=== PATIENT | male | born 1990 | race African-American/Black ===

== ENCOUNTER 2020-02-03 16:42 | Emergency (ER) | payer OTHER, MEDICAID, SELFPAY ==
[2020-02-03 16:55] VITALS: BP 122/58; PULSE 65; RESP 16; TEMP 36.5; O2SAT 99
--- NOTE | 2020-02-03 17:05 | DI.RAD.S_ITS ---
PROCEDURE: XR CHEST 2V INDICATIONS: cough, short of breath TECHNIQUE: 2 views of the chest were acquired. COMPARISON: None. FINDINGS: Surgical changes and devices: None. Lungs and pleura: Lungs are clear. No pleural effusions or pneumothorax. Mediastinum: Mediastinal contours are normal. Heart size is normal. Bones and chest wall: No suspicious bony abnormalities. Soft tissues appear unremarkable. IMPRESSION: Clear lungs. Dictated by: Bulmaro Downing M.D. on 02/03/2020 at 16:22 Approved by: Bulmaro Downing M.D. on 02/03/2020 at 16:23
[2020-02-03 17:28] VITALS: BP 107/60; PULSE 63; RESP 16; O2SAT 98
[2020-02-03 18:00] VITALS: BP 105/62; PULSE 70; RESP 16; O2SAT 100
--- NOTE | 2020-02-03 18:00 | ED.URI ---
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 He has complained of a dry cough, transient shortness of breath, muscle aches chills, vague abdominal symptoms and slight diarrhea since Saturday. He denies any nausea or vomiting, states that he is eating and drinking okay. He is taking ibuprofen, airborne, he hand some peppermint enzymes. He denies any ear pain or sore throat. He is concerned about continuing going to work while he thinks he might be sick Related Data Previous Rx's Medication Instructions Recorded pantoprazole [Protonix] 40 mg PO BID #30 tab 02/06/20 sucralfate 1 gram PO QACHS 28 Days #112 tab 02/06/20 Allergies Allergy/AdvReac Type Severity Reaction Status Date / Time No Known Drug Allergies Allergy Verified 02/06/20 15:57 Review of Systems <LOUISE Chery - Last Filed: 02/03/20 19:16> Review of Systems Narrative: GENERAL: See HPI HEENT: Denies sinus pain, ear pain, sore throat, difficulty swallowing, dizziness. RESPIRATORY: See HPI CARDIOVASCULAR: Denies chest pain, palpitations, orthopnea, edema, GASTROINTESTINAL: Denies nausea, vomiting, abdominal pain, diarrhea, constipation, melena. : Denies dysuria, frequency, incontinence, hematuria, urinary retention. MUSCULOSKELETAL: denies weakness, joint pain, or bony pain SKIN: Denies rash, skin lesions, or other NEUROLOGIC: Denies weakness, headache, numbness, change in speech, confusion, seizures, incoordination. PSYCHIATRIC: No concerning psychosocial issues. 12 point review of systems is negative except for those stated above Patient History <LILLIE Chery - Last Filed: 02/03/20 19:16> Social History Smoking Status: Current every day smoker Smoking Status: Current every day smoker Substance Use Type: does not use Exam <LILLIE Chery - Last Filed: 02/03/20 19:16> Narrative Exam Narrative: GENERAL: This is a well-nourished, well-developed patient, in no acute distress HEAD: Atraumatic. Normocephalic. No temporal or scalp tenderness. EYES: Pupils equal round and reactive. Extraocular motions intact. No scleral icterus. No injection or drainage. ENT: Nose without bleeding, purulent drainage or septal hematoma. Throat without erythema, tonsillar hypertrophy or exudate. Uvula midline. Airway patent. NECK: Trachea midline. No JVD or lymphadenopathy. Supple, nontender, no meningeal signs. CARDIOVASCULAR: Regular rate and rhythm RESPIRATORY: Clear to auscultation. Breath sounds equal bilaterally. No wheezes, rales, or rhonchi. No cough. No increased respiratory effort. No accessory muscle use. GASTROINTESTINAL: Abdomen soft, diffusely tender, nondistended. No hepato-splenomegaly, or palpable masses. No guarding. Soft nonrigid abdomen EXTREMITIES: No clubbing, cyanosis, or edema. No joint tenderness, effusion, or edema noted. BACK: Nontender without deformity or crepitance. No flank tenderness. NEURO: AOx3. SKIN: No rash or erythema on visible skin Initial Vital Signs Initial Vital Signs: Vital Signs Temperature 97.7 F 02/03/20 16:55 Pulse Rate 65 02/03/20 16:55 Respiratory Rate 16 02/03/20 16:55 Blood Pressure 122/58 L 02/03/20 16:55 Pulse Oximetry 99 02/03/20 16:55 <Beau Barajas DO - Last Filed: 02/09/20 18:05> Initial Vital Signs Initial Vital Signs: Vital Signs Temperature 97.7 F 02/03/20 16:55 Pulse Rate 65 02/03/20 16:55 Respiratory Rate 16 02/03/20 16:55 Blood Pressure 122/58 L 02/03/20 16:55 Pulse Oximetry 99 02/03/20 16:55 Scores <LILLIE Chery - Last Filed: 02/03/20 19:16> GCS Kaya coma scale eye opening: Spontaneous [place] coma scale verbal response: Orientated Kaya coma scale motor response: Obey commands [place] coma scale total score: 15 Course <LILLIE Chery - Last Filed: 02/03/20 19:16> Orders Ordered: ED Orders 02/03/20 17:05 XR chest 2V Stat Vital Signs Vital signs: Vital Signs - 8 hr 02/03/20 16:55 02/03/20 17:28 02/03/20 18:00 Temperature 97.7 F Pulse Rate 65 63 70 Respiratory Rate 16 16 16 Blood Pressure 122/58 L Blood Pressure [Left Arm] 107/60 105/62 Pulse Oximetry 99 98 100 <Beau Barajas DO - Last Filed: 02/09/20 18:05> Orders Ordered: ED Orders 02/03/20 17:05 XR chest 2V Stat Vital Signs Vital signs: Vital Signs - 8 hr 02/03/20 16:55 02/03/20 17:28 02/03/20 18:00 Temperature 97.7 F Pulse Rate 65 63 70 Respiratory Rate 16 16 16 Blood Pressure 122/58 L Blood Pressure [Left Arm] 107/60 105/62 Pulse Oximetry 99 98 100 MDM - URI/Sore Throat <LILLIE Chery - Last Filed: 02/03/20 19:16> Differential Diagnosis Differential diagnosis: Likely upper respiratory infection, viral infection and other (Pneumonia, coronavirus) Lab Data Labs: Lab Results 02/03/20 Range/Units 17:05 COVID-19 PCR Not detected (Not Detected) Imaging Data Chest x-ray: Radiologist's Impression: [address] [place] [id number] XRay Report Signed Patient: Hitesh Moreno JR RMR#: [id number] : 1990Acct:[id number] Age/Sex: 29 / MDate of Service: 02/03/20 Loc: ED Accession Number: [id number] Procedure: XR chest 2V Ordering Provider: Kitty Romero PROCEDURE: XR CHEST 2V INDICATIONS: cough, short of breath TECHNIQUE: 2 views of the chest were acquired. COMPARISON: None. FINDINGS: Surgical changes and devices: None. Lungs and pleura: Lungs are clear. No pleural effusions or pneumothorax. Mediastinum: Mediastinal contours are normal. Heart size is normal. Bones and chest wall: No suspicious bony abnormalities. Soft tissues appear unremarkable. IMPRESSION: Clear lungs. Dictated by: Bulmaro Downing M.D. on 02/03/2020 at 16:22 Approved by: Bulmaro Downing M.D. on 02/03/2020 at 16:23 MDM Narrative Medical decision making narrative: The patient is a 29-year-old male who presents with a chief complaint of ?I think. I have the coronavirus he has been experiencing similar symptoms such as muscle aches, chills, dry cough, transient shortness of breath and vague GI complaints. 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 Chest x-ray shows no pneumonia. Covid test is pending. I discussed at length self quarantine, acting as though he is sick, washing hands, covering coughs and sneezes etcetera until results come in. Encouraged following up with primary care provider given contact information [facility] health human resources operations director. Patient has no questions or concerns upon discharge and states understanding return precautions as well as follow-up care. I did offer to do lab work for his stomach the patient declined and stated he did not wait for. He is hemodynamically stable, in no acute respiratory distress speaking full sentences throughout his stay in the emergency department <Beau Barajas DO - Last Filed: 02/09/20 18:05> Lab Data Labs: Lab Results 02/03/20 Range/Units 17:05 COVID-19 PCR Not detected (Not Detected) Discharge Plan Departure Patient Disposition: Home Clinical Impression: Upper respiratory infection Qualifiers: URI type: unspecified viral URI Qualified Code(s): J06.9 - Acute upper respiratory infection, unspecified Discharge Date/Time: 02/03/20 18:25 Instructions: DI for Cough -- Adult, DI for Viral Upper Respiratory Infection -- Adult, Can COVID-19 be prevented? Activity Restrictions/Additional Instructions: Thank you for trusting us with your care today As discussed, your chest x-ray does not indicate pneumonia. However your symptoms correlate with Covid19. As I discussed, please act as though you are sick. This includes washing your hands, covering your coughs and sneezes, sanitizing often use surfaces every day. Please come back to the emergency department for any acute concerns such as inability keep down fluids, severe shortness of breath etcetera Please follow-up with primary care provider. I have given contact information at [facility] human resources operations director, who can help you identify one. Prescriptions: No Action pantoprazole [Protonix] 40 mg tablet,delayed release (DR/EC) 40 mg PO BID Qty: 30 RF: 0 sucralfate 1 gram tablet 1 gram PO QACHS 28 Days Qty: 112 RF: 0 Referrals: [facility] Resources [Outside] Stand Alone Forms: Work Release Note, Work/School Release <Beau Barajas, DO - Last Filed: 02/09/20 18:05> Cosign ED Attending Cosbenjaminature Attestation: Dr Barajas Co-Sign Statement: I was available for consultation during this patient's emergency department visit. This chart is signed by myself for administrative purposes only. I did not have direct contact with this patient during this visit. They were seen independently by the APC.
[2020-02-05 05:36] LABS: COVID19 Sendout Not Detected (Not Detected)
== END 2020-02-03 18:25 | disposition home or self-care (01) ==
PROVIDERS: Emergency Provider Nurse Practitioner Family
DX: J06.9 Acute upper respiratory infection, unspecified (principal); R06.02 Shortness of breath; R05 Cough
CPT/HCPCS: 71046; 87635; 99282; 99283

== ENCOUNTER 2020-02-06 15:36 | Emergency (ER) | payer OTHER, MEDICAID, SELFPAY ==
[2020-02-06 15:40] VITALS: BP 128/64; PULSE 78; RESP 16; TEMP 37.1; O2SAT 100; BMI 23.7
--- NOTE | 2020-02-06 16:08 | ED.ABDPAIN ---
HPI - Abdominal Pain General Chief Complaint: Abdominal Pain Stated Complaint: Stomach Is Bleeding Time Seen by Provider: 02/06/20 15:51 Source: patient Mode of arrival: Ambulatory Limitations: no limitations History of Present Illness HPI narrative: 29-year-old male comes emergency department with complaint of abdominal discomfort which he describes in the epigastric region. He states that he had sort of fevers, chills and muscle aches all over starting Saturday. He was seen here Saturday for concerns for Darragh it. He was tested which came back negative. Since then he has not had any additional fevers, chills but he has had some increasing abdominal discomfort. He states that he made himself throw up once yesterday. He states that there is a small amount of blood streaked in it at that time. He has also noted black tarry stools 7 or 8 times in the last 72 hours and occasionally some bright red blood streaked throughout. Patient states that he has had some generalized muscle aches occasionally. He does states that he was taking up to 10 Aleve daily for several days when he was feeling ill. He denies any other current medical issues. He denies any blood thinners. He denies any current medications. He comes in today as he noted on the directions for the Aleve that this can be a complication. Patient states he does use tobacco, denies any alcohol, denies illicit. Related Data Previous Rx's Medication Instructions Recorded pantoprazole [Protonix] 40 mg PO BID #30 tab 02/06/20 sucralfate 1 gram PO QACHS 28 Days #112 tab 02/06/20 Allergies Allergy/AdvReac Type Severity Reaction Status Date / Time No Known Drug Allergies Allergy Verified 02/06/20 15:57 Review of Systems Review of Systems ROS Unobtainable: All systems reviewed & are unremarkable except as noted in HPI and below Patient History Social History Smoking Status: Current every day smoker Smoking Status: Current every day smoker Substance Use Type: does not use Exam Narrative Exam Narrative: GENERAL: Alert and oriented x three, thin, well-appearing male in mild distress. HEENT: Head normocephalic, atraumatic, EOMI, pupils reactive, face symmetric, moist mucous membranes NECK: Supple, full range of motion CARDIOVASCULAR: Regular rate and rhythm without murmurs, rubs or gallops. RESPIRATORY: Breath sounds equal bilaterally, no wheezes rales or rhonchi. ABDOMEN: Soft, nontender. Nondistended. Normoactive bowel sounds all 4 quadrants. No guarding or rebound, rigidity, no mass. Positive stool occult, there is no bright red blood on digital rectal exam. No hemorrhoids noted externally or internally. : No CVA tenderness EXTREMITIES: Normal range of motion, no clubbing or edema. Neurovascularly intact NEUROLOGICAL: Cranial nerves II through XII grossly intact. Moving all extremities SKIN: Warm, dry, no petechiae, no rashes or lesions. Initial Vital Signs Initial Vital Signs: Vital Signs Temperature 98.8 F 02/06/20 15:40 Pulse Rate 78 02/06/20 15:40 Respiratory Rate 16 02/06/20 15:40 Blood Pressure 128/64 02/06/20 15:40 Pulse Oximetry 100 02/06/20 15:40 Course Orders Ordered: ED Orders 02/06/20 15:50 Complete Blood Count AUTO DIFF Stat Comprehensive Metabolic Panel Stat Lipase Stat Discontinued Medications Pantoprazole Sodium (Protonix) 80 mg IV NOW ONE Stop: 02/06/20 16:10 Last Admin: 02/06/20 16:18 Dose: 80 mg Documented by: REBECA Vital Signs Vital signs: Vital Signs - 8 hr 02/06/20 15:40 02/06/20 16:19 02/06/20 16:22 Temperature 98.8 F Pulse Rate 78 75 77 Respiratory Rate 16 18 18 Blood Pressure 128/64 Blood Pressure [Left Arm] 115/65 115/65 Pulse Oximetry 100 100 99 02/06/20 17:00 02/06/20 17:30 Temperature Pulse Rate 73 84 Respiratory Rate 18 16 Blood Pressure Blood Pressure [Left Arm] 112/62 112/67 Pulse Oximetry 100 100 MDM - Abdominal Pain Lab Data Result diagrams: 02/06/20 15:50 02/06/20 15:50 Labs: Lab Results 02/06/20 02/06/20 Range/Units 15:50 15:50 WBC 8.3 (4.5-11.0) X10^3/uL RBC 4.05 L (4.5-5.9) X10^6/uL Hgb 12.6 L (13.5-17.5) g/dL Hct 37.1 L (41-53) % MCV 91.7 (80-100) fL MCH 31.0 (26-34) PG MCHC 33.8 (30-36) % RDW 13.5 (11.6-14.8) % Plt Count 240 (150-400) X10^3/uL Neut % (Auto) 52.0 (50-75) % Lymph % (Auto) 35.8 (25-40) % Morton % (Auto) 9.6 (3-14) % Eos % (Auto) 1.9 L (2-4) % Baso % (Auto) 0.7 (0-2) % Neut # (Auto) 4300 (6626-5125) /uL Lymph # (Auto) 3000 (8707-7009) /uL Morton # (Auto) 800 (0-900) /uL Eos # (Auto) 200 (0-450) /uL Baso # (Auto) 100 (0-100) /uL Sodium 139 (137-145) mmol/L Potassium 4.0 (3.4-5.1) mmol/L Chloride 108 H (98-107) mmol/L Carbon Dioxide 25 (22-32) mmol/L BUN 25 H (9-20) mg/dL Creatinine 0.94 (0.66-1.25) mg/dL Estimated GFR > 60.0 (>60) mL/min BUN/Creatinine Ratio 26.6 H (6-22) Glucose 93 (70-100) mg/dL Calcium 8.8 (8.4-10.2) mg/dL Total Bilirubin 0.2 (0.2-1.3) mg/dL AST 26 (17-59) IU/L ALT 17 (<50) IU/L Alkaline Phosphatase 60 (38-126) U/L Total Protein 6.7 (6.3-8.2) g/dL Albumin 3.9 (3.5-5.0) g/dL Globulin 2.8 (1.7-4.1) g/dL Albumin/Globulin Ratio 1.4 (1.0-2.8) Lipase 86 (23-300) U/L MDM Narrative Medical decision making narrative: Patient comes in with dark/black stools 7 or 8 times in the last 3 days. He admits to using an excessive amount of Aleve. Labs were obtained and show Imaging was deferred as patient is likely having a either an ulcer or gastritis secondary to excessive NSAIDs. He did receive Protonix 80 mg IV given. Patient's labs show hemoglobin is 12, no priors for comparison. He does have a elevated chloride, BUN is 25 renal functions normal with LFTs in normal range. Stool occult was positive. Patient's vitals in the department have been normal with no tachycardia. Plan for patient to continue Protonix 40 mg twice daily, sucralfate and to avoid all NSAIDs and with strict return precautions. Spoke with General surgery about having patient follow-up for colonoscopy if he is not having resolution of symptoms. Spoke with Dr. Haynes who agrees with plan. Discharge Plan Departure Patient Disposition: Home Clinical Impression: GI bleed Qualifiers: GI bleed type/associated pathology: melena Qualified Code(s): K92.1 - Melena Instructions: Gastrointestinal Bleeding Activity Restrictions/Additional Instructions: Follow up with general surgery for recheck in the next week. Call for an appointment. You may need a EGD and/or colonoscopy for further evaluation I suspect that you have a bleed secondary to your excessive use of Aleve. Avoid all NSAIDs including Aleve, ibuprofen or ibuprofen type products. You may take Tylenol up to a 1000 mg every 8 hours as needed for pain. Do not take more than 3000mg in 24 hours. Take Protonix twice daily, also takes across face with meals and prior to sleep for the next 14 days. Return to the ER for fevers, increasing abdominal pain, continuing black or bloody stools lightheadedness, passing out, new chest pain or shortness of breath, persistent vomiting or other new or concerning symptoms Prescriptions: New pantoprazole [Protonix] 40 mg tablet,delayed release (DR/EC) 40 mg PO BID Qty: 30 RF: 0 sucralfate 1 gram tablet 1 gram PO QACHS 28 Days Qty: 112 RF: 0 Referrals: Zaid Haynes MD [Physician] -
[2020-02-06] MEDS: PANTOPRAZOLE 40 MG VIAL 80 MG IV (16:18)
[2020-02-06 16:19] VITALS: BP 115/65; PULSE 75; RESP 18; O2SAT 100
[2020-02-06 16:22] VITALS: BP 115/65; PULSE 77; RESP 18; O2SAT 99
[2020-02-06 16:31] LABS: Add Manual Diff / Slide Review NO; Basophils Absolute Auto 100 /uL (0-100); Basophils Percent Auto 0.7 % (0-2); Eosinophils Absolute Auto 200 /uL (0-450); Eosinophils Percent Auto 1.9 % (2-4); Hematocrit 37.1 % (41-53); Hemoglobin 12.6 g/dL (13.5-17.5); Lymphocytes Absolute Auto 3000 /uL (1100-4500); Lymphocytes Percent Auto 35.8 % (25-40); Mean Corpuscular HGB Conc 33.8 % (30-36); Mean Corpuscular Volume 91.7 fL (80-100); Monocytes Absolute Auto 800 /uL (0-900); Monocytes Percent Auto 9.6 % (3-14); Neutrophils Absolute Auto 4300 /uL (1500-7000); Platelet Count 240 X10^3/uL (150-400); Red Blood Cell Count 4.05 X10^6/uL (4.5-5.9); Red Cell Distribution Width 13.5 % (11.6-14.8); White Blood Cell Count 8.3 X10^3/uL (4.5-11.0)
[2020-02-06 16:36] LABS: Alanine Aminotransferase 17 IU/L (<50); Albumin 3.9 g/dL (3.5-5.0); Albumin Globulin Ratio 1.4 (1.0-2.8); Alkaline Phosphatase 60 U/L (38-126); Aspartate Aminotransferase 26 IU/L (17-59); BUN Creatinine Ratio 26.6 (6-22); Bilirubin Total 0.2 mg/dL (0.2-1.3); Blood Urea Nitrogen 25 mg/dL (9-20); Calcium 8.8 mg/dL (8.4-10.2); Carbon Dioxide 25 mmol/L (22-32); Chloride 108 mmol/L (98-107); Estimated Glomerular Filt Rate > 60.0 mL/min (>60); Globulin 2.8 g/dL (1.7-4.1); Glucose 93 mg/dL (70-100); HEMOLYSIS 21 (0-50); Lipase 86 U/L (23-300); Sodium 139 mmol/L (137-145); Total Protein 6.7 g/dL (6.3-8.2)
[2020-02-06 17:00] VITALS: BP 112/62; PULSE 73; RESP 18; O2SAT 100
[2020-02-06 17:30] VITALS: BP 112/67; PULSE 84; RESP 16; O2SAT 100
== END 2020-02-06 17:57 | disposition home or self-care (01) ==
PROVIDERS: Emergency Provider Emergency Medicine
DX: K92.1 Melena (principal); R10.13 Epigastric pain
CPT/HCPCS: 36415; 80053; 83690; 85025; 96374; 99284; C9113

== ENCOUNTER 2020-02-17 17:41 | Emergency (ER) | payer OTHER, MEDICAID, SELFPAY ==
[2020-02-17 17:49] VITALS: BP 129/64; PULSE 69; RESP 14; TEMP 36.9; O2SAT 98
[2020-02-17 18:10] LABS: Add Manual Diff / Slide Review NO; Basophils Absolute Auto 0 /uL (0-100); Basophils Percent Auto 0.3 % (0-2); Eosinophils Absolute Auto 100 /uL (0-450); Eosinophils Percent Auto 1.4 % (2-4); Hematocrit 33.5 % (41-53); Hemoglobin 11.1 g/dL (13.5-17.5); Lymphocytes Absolute Auto 1800 /uL (1100-4500); Lymphocytes Percent Auto 17.1 % (25-40); Mean Corpuscular HGB Conc 33.1 % (30-36); Mean Corpuscular Hemoglobin 30.4 PG (26-34); Mean Corpuscular Volume 91.6 fL (80-100); Monocytes Absolute Auto 800 /uL (0-900); Monocytes Percent Auto 7.6 % (3-14); Neutrophils Absolute Auto 7900 /uL (1500-7000); Neutrophils Percent Auto 73.6 % (50-75); Platelet Count 353 X10^3/uL (150-400); Red Blood Cell Count 3.66 X10^6/uL (4.5-5.9); Red Cell Distribution Width 13.9 % (11.6-14.8); White Blood Cell Count 10.7 X10^3/uL (4.5-11.0)
--- NOTE | 2020-02-17 18:15 | ED.RECABL ---
HPI - Recheck/Abnormal Lab/Rx General Chief Complaint: Recheck/Abnormal Lab/Rx Stated Complaint: stomach bleeding - needs check up Time Seen by Provider: 02/17/20 17:59 Source: patient Mode of arrival: Ambulatory Limitations: no limitations History of Present Illness HPI narrative: 29-year-old male smoker returns for checkup after a recent visit for GI bleed. He states he has no ongoing symptoms but because his paperwork says follow-up and he has no primary care provider he came here for evaluation. He denies any dizziness, weakness or lightheadedness. He has no chest pain or shortness of breath. He denies fever or chills. He has no ongoing bloody stools or hematemesis. He had developed some abdominal pain that was thought to be secondary to significant caffeine consumption and took a large amount of NSAIDs. Since then he has been taking his meds as directed. MD complaint: other Initial visit (ago): week(s) Returns today for: other Symptoms since prior visit: no new symptoms Context: planned re-check Associated symptoms: none Related Data Previous Rx's Medication Instructions Recorded pantoprazole [Protonix] 40 mg PO BID #30 tab 02/06/20 sucralfate 1 gram PO QACHS 28 Days #112 tab 02/06/20 Allergies Allergy/AdvReac Type Severity Reaction Status Date / Time No Known Drug Allergies Allergy Verified 02/06/20 15:57 Review of Systems Constitutional Constitutional: Denies chills, Denies fatigue, Denies fever(s), Denies frequent falls, Denies lethargy and Denies weakness Eyes Eyes: Denies change in vision, Denies eye discharge, Denies irritation and Denies loss of vision ENT Ears, Nose, Mouth, and Throat: Denies change in voice, Denies dizziness, Denies neck pain, Denies sore throat and Denies throat swelling Cardiovascular Cardiovascular: Denies chest pain, Denies irregular heart rhythm, Denies lightheadedness, Denies palpitations, Denies dyspnea, Denies dyspnea on exertion and Denies orthopnea Respiratory Respiratory: Denies cough, Denies dyspnea, Denies dyspnea on exertion and Denies wheezing Gastrointestinal Gastrointestinal: Denies abdominal pain, Denies change in bowel habits, Denies diarrhea, Denies nausea and Denies vomiting Genitourinary Genitourinary: Denies hematuria, Denies flank pain, Denies urinary incontinence and Denies urinary urgency Musculoskeletal Musculoskeletal: Denies back pain, Denies muscle weakness, Denies neck pain, Denies numbness and Denies tingling Integumentary/Breasts Skin/Breast: Denies pruritus, Denies erythema, Denies rash and Denies wounds Neurologic Neurologic: Denies behavioral changes, Denies confusion, Denies dizziness, Denies frequent falls, Denies loss of vision, Denies numbness, Denies tingling and Denies weakness Psychiatric Psychiatric: Denies anxiety, Denies behavioral changes, Denies confusion, Denies depression, Denies homicidal ideation and Denies suicidal ideation Endocrine Endocrine: Denies fatigue, Denies flushing and Denies palpitations Hematologic/Lymphatic Hematologic/Lymphatic: Denies easy bruising Allergic/Immunologic Allergic/Immunologic: Denies urticaria, Denies throat swelling and Denies wheezing Patient History Social History Smoking Status: Current every day smoker Smoking Status: Current every day smoker tobacco type: cigars Substance Use Type: does not use Exam Narrative Exam Narrative: GENERAL: [29] year old patient appears stated age. Well-nourished, well-developed patient, in mild distress. HEAD: Atraumatic. Normocephalic. EYES: Pupils equal round and reactive. Extraocular motions intact. No scleral icterus. No injection or drainage. ENT: Nose without bleeding, purulent drainage. Throat without erythema, tonsillar hypertrophy or exudate. Airway patent. NECK: Trachea midline. Non tender CARDIOVASCULAR: Regular rate and rhythm without murmurs, gallops, or rubs. RESPIRATORY: Clear to auscultation. Breath sounds equal bilaterally. No wheezes, rales, or rhonchi. GASTROINTESTINAL: Abdomen soft, non-tender, nondistended. EXTREMITIES: No edema or joint tenderness. BACK: Nontender without deformity or crepitance. No flank tenderness. NEURO: AOx3. SKIN: No rash or erythema of visible areas Initial Vital Signs Initial Vital Signs: Vital Signs Temperature 98.4 F 02/17/20 17:49 Pulse Rate 69 02/17/20 17:49 Respiratory Rate 14 02/17/20 17:49 Blood Pressure 129/64 02/17/20 17:49 Pulse Oximetry 98 02/17/20 17:49 Course Orders Ordered: ED Orders 02/17/20 18:01 CMP [Comprehensive Metabolic Panel] Stat Complete Blood Count AUTO DIFF Stat Prothrombin Time INR Stat Discontinued Medications Pantoprazole Sodium (Protonix) 40 mg IV NOW ONE Stop: 02/17/20 18:18 Last Admin: 02/17/20 18:43 Dose: Not Given Documented by: NOEMI Vital Signs Vital signs: Vital Signs - 8 hr 02/17/20 17:49 Temperature 98.4 F Pulse Rate 69 Respiratory Rate 14 Blood Pressure 129/64 Pulse Oximetry 98 MDM - Recheck/Abnormal Lab/Rx Lab Data Result diagrams: 02/17/20 18:01 02/17/20 18:01 Labs: Lab Results 02/17/20 02/17/20 02/17/20 Range/Units 18:01 18:01 18:01 WBC 10.7 (4.5-11.0) X10^3/uL RBC 3.66 L (4.5-5.9) X10^6/uL Hgb 11.1 L (13.5-17.5) g/dL Hct 33.5 L (41-53) % MCV 91.6 (80-100) fL MCH 30.4 (26-34) PG MCHC 33.1 (30-36) % RDW 13.9 (11.6-14.8) % Plt Count 353 (150-400) X10^3/uL Neut % (Auto) 73.6 (50-75) % Lymph % (Auto) 17.1 L (25-40) % Richardson % (Auto) 7.6 (3-14) % Eos % (Auto) 1.4 L (2-4) % Baso % (Auto) 0.3 (0-2) % Neut # (Auto) 7900 H (4516-4822) /uL Lymph # (Auto) 1800 (3510-2830) /uL Richardson # (Auto) 800 (0-900) /uL Eos # (Auto) 100 (0-450) /uL Baso # (Auto) 0 (0-100) /uL PT 11.5 (10.1-12.7) SECONDS INR 1.0 (0.9-1.3) Sodium 138 (137-145) mmol/L Potassium 3.9 (3.4-5.1) mmol/L Chloride 104 (98-107) mmol/L Carbon Dioxide 23 (22-32) mmol/L BUN 14 (9-20) mg/dL Creatinine 1.00 (0.66-1.25) mg/dL Estimated GFR > 60.0 (>60) mL/min BUN/Creatinine Ratio 14.0 (6-22) Glucose 117 H (70-100) mg/dL Calcium 8.8 (8.4-10.2) mg/dL Total Bilirubin 0.2 (0.2-1.3) mg/dL AST 31 (17-59) IU/L ALT 23 (<50) IU/L Alkaline Phosphatase 75 (38-126) U/L Total Protein 6.8 (6.3-8.2) g/dL Albumin 4.0 (3.5-5.0) g/dL Globulin 2.8 (1.7-4.1) g/dL Albumin/Globulin Ratio 1.4 (1.0-2.8) Discharge Plan Departure Patient Disposition: Home Clinical Impression: Feared complaint without diagnosis, Gastric pain Discharge Date/Time: 02/17/20 18:52 Instructions: Gastrointestinal Bleeding Activity Restrictions/Additional Instructions: *You have been diagnosed with [recheck for previous gastrointestinal bleeding due to excessive NSAID use] *What to do: *Take medications as directed *Follow up with your primary care provider in 2-3 days, call for an appointment. Let them know you were seen in the Emergency Department and that we ask that you be seen in follow up *Return to ER if you should have any new, worsening or concerning symptoms Prescriptions: No Action pantoprazole [Protonix] 40 mg tablet,delayed release (DR/EC) 40 mg PO BID Qty: 30 RF: 0 sucralfate 1 gram tablet 1 gram PO QACHS 28 Days Qty: 112 RF: 0 Referrals: [facility] [Outside]
[2020-02-17 18:19] LABS: Prothrombin Time 11.5 SECONDS (10.1-12.7)
[2020-02-17 18:27] LABS: Alanine Aminotransferase 23 IU/L (<50); Albumin Globulin Ratio 1.4 (1.0-2.8); Alkaline Phosphatase 75 U/L (38-126); Aspartate Aminotransferase 31 IU/L (17-59); Bilirubin Total 0.2 mg/dL (0.2-1.3); Blood Urea Nitrogen 14 mg/dL (9-20); Calcium 8.8 mg/dL (8.4-10.2); Carbon Dioxide 23 mmol/L (22-32); Chloride 104 mmol/L (98-107); Estimated Glomerular Filt Rate > 60.0 mL/min (>60); Globulin 2.8 g/dL (1.7-4.1); Glucose 117 mg/dL (70-100); HEMOLYSIS < 15 (0-50); Potassium 3.9 mmol/L (3.4-5.1); Sodium 138 mmol/L (137-145); Total Protein 6.8 g/dL (6.3-8.2)
== END 2020-02-17 18:52 | disposition home or self-care (01) ==
PROVIDERS: Emergency Medicine; Emergency Provider Emergency Medicine
DX: R10.9 Unspecified abdominal pain (principal)
CPT/HCPCS: 36415; 80053; 85025; 85610; 99283

== ENCOUNTER 2020-03-09 16:56 | Emergency (ER) | payer OTHER, MEDICAID, SELFPAY ==
[2020-03-09 17:00] VITALS: BP 136/80; PULSE 90; RESP 14; TEMP 36.7; O2SAT 98; BMI 23.7
--- NOTE | 2020-03-09 17:12 | PC.NURSE ---
pt here c/o back of head pain after using razor, now with tenderness to palpate ,swelling, sxs for 4 days. also c/o anterior abdominal pain, +bm today, denies nausea or vomiting. pt with flat affect, responds slow but appropriate skin back of head irritated, denies neck pain with full range of motion
--- NOTE | 2020-03-09 17:41 | ED_ITS ---
HPI - Headache <Zeinab Holcomb PA-C - Last Filed: 03/09/20 22:15> General Chief Complaint: Headache Stated Complaint: Pain in head, breathing/ stomach issues Time Seen by Provider: 03/09/20 17:24 Mode of arrival: Ambulatory Limitations: no limitations History of Present Illness HPI Narrative: This is 29-year-old who presents to the emergency department with complaints of pain in the back of his head in the area where he shaved a few days ago, as well as some continued intermittent abdominal pain that is similar to but less severe than the abdominal pain he had a few weeks ago when he was diagnosed with a probable peptic ulcer disease/GI bleed. He states that he just has not been feeling well recently. He states that he has been continuing to smoke although he has tried to change some things in his diet. He has continued to take the sucralfate however he ran out of the other medicine (Pantoprozole) a few weeks ago and his pain began to return intermittently. He says his pain is not very severe, is not really a pain so much as a generalized discomfort that he notes in the upper mid and upper left part of his abdomen, he thinks that it is worse after he smokes or drinks coffee although he does not really feel it is worse after eating food. He has been drinking a lot of water because he feels like this has been relieving his pain somewhat. He says that the back of his head felt swollen and was worse a few days ago than it is today, he shaved that area about 5 days ago and since then it seems like it was irritated and itchy and swelling, he has been icing this area but has not done anything else for it. He [place] and has not really been able to follow-up with a PCP regarding his abdominal complaints for which he was seen in the emergency department 2 weeks ago. He endorses feeling generally unwell recently and states that he was working out frequently until a couple of months ago, but more recently he has felt muscle pain a fair amount and so he has been icing his muscles frequently he thinks that they still hurt sometimes because he used to work out a lot. He also notes that he has some swollen lymph nodes behind his left ear, which have been there for a little while that he would ?like to get removed?. He says he smokes a lot of cigarettes and I also vape a lot He denies nausea, vomiting, diarrhea, constipation, blood in his stool, hematemesis, acute abdominal pain, fever, shortness of breath, headache, dysuria or any other symptoms, alcohol use, drug use, or prescription/OTC medication use with exceptions above. MD Complaint: other (swelling after shaving back of head) Onset (ago): day(s) (5) Onset description: gradual Location: occipital (in the skin) Severity: mild Severity scale (1-10): 2 Quality: intermittent and other (itchy and swollen feeling) Relieving factors: other (ice/cold) Exacerbating factors: none Context: other (occurred after shaving) Associated symptoms: none Treatments prior to arrival: other (ice) Related Data Previous Rx's Medication Instructions Recorded pantoprazole [Protonix] 40 mg PO BID #30 tab 02/06/20 Allergies Allergy/AdvReac Type Severity Reaction Status Date / Time No Known Drug Allergies Allergy Verified 03/09/20 17:11 Review of Systems <Zeinab Holcomb PA-C - Last Filed: 03/09/20 22:15> Review of Systems Narrative: GENERAL: Endorses generally just feeling unwell recently, Denies chills, fatigue, fever, sweats. HEENT: Denies sinus pain, ear pain, sore throat, difficulty swallowing, dizziness. RESPIRATORY: Denies dyspnea, cough, wheezing, hemoptysis, sputum. CARDIOVASCULAR: Denies chest pain, palpitations, orthopnea, edema, GASTROINTESTINAL: Denies vomiting, endorses intermittent upper middle and left sided abdominal pain, denies diarrhea, constipation, melena, blood in stool, hematemesis. : Denies dysuria, frequency, incontinence, hematuria, urinary retention. MUSCULOSKELETAL: denies weakness, joint pain, or bony pain SKIN: Denies rash, skin lesions, or other NEUROLOGIC: Denies weakness, headache, numbness, change in speech, confusion, seizures, incoordination. PSYCHIATRIC: No concerning psychosocial issues. 12 point review of systems is negative except for those stated above Patient History <Zeinab Holcomb PA-C - Last Filed: 03/09/20 22:15> Social History Smoking Status: Current every day smoker Smoking Status: Current every day smoker tobacco type: cigars Substance Use Type: does not use Exam <Zeinab Holcomb PA-C - Last Filed: 03/09/20 22:15> Narrative Exam Narrative: GENERAL: 29 year old patient appears stated age. Multiple tattoos, pleasant, Well-nourished, well-developed patient, in mild distress. HEAD: Atraumatic. Normocephalic. There is a 4cm x 9cm area of mild tenderness and swelling with follicular irritation on the posterior over the occiput. It is without erythema, heat, or significant swelling. EYES: Pupils equal round and reactive. Extraocular motions intact. No scleral icterus. No injection or drainage. ENT: Nose without bleeding, purulent drainage. Throat without erythema, tonsillar hypertrophy or exudate. Airway patent. NECK: Trachea midline. Non tender. CARDIOVASCULAR: Regular rate and rhythm without murmurs, gallops, or rubs. RESPIRATORY: Clear to auscultation. Breath sounds equal bilaterally. No wheezes, rales, or rhonchi. GASTROINTESTINAL: Abdomen nondistended, there is tenderness over the epigastric and left upper quadrant area with moderate to deep palpation that reproduces his dull abdominal pain all other quadrants are without pain, he has no McBurney's point tenderness, negative Rovsing sign, negative courvasier's sign, liver and gallbladder are nontender by palpation. EXTREMITIES: No edema or joint tenderness. BACK: Nontender without deformity or crepitance. No flank tenderness. NEURO: AOx3. SKIN: No rash or erythema of visible areas Initial Vital Signs Initial Vital Signs: Vital Signs Temperature 98.1 F 03/09/20 17:00 Pulse Rate 90 03/09/20 17:00 Respiratory Rate 14 03/09/20 17:00 Blood Pressure 136/80 03/09/20 17:00 Pulse Oximetry 98 03/09/20 17:00 <Pauly Epperson MD - Last Filed: 03/09/20 23:04> Initial Vital Signs Initial Vital Signs: Vital Signs Temperature 98.1 F 03/09/20 17:00 Pulse Rate 90 03/09/20 17:00 Respiratory Rate 14 03/09/20 17:00 Blood Pressure 136/80 03/09/20 17:00 Pulse Oximetry 98 03/09/20 17:00 Course <Zeinab Holcomb PA-C - Last Filed: 03/09/20 22:15> Course Course Narrative: The patient presented with pain at the back of his head 2nd to irritation after shaving 5 days ago as well as intermittent and recurrent abdominal pain left upper quadrant and just feeling unwell. Patient was updated regarding his labs and concern for acute pancreatitis, advised we would be doing some additional labs as well as getting a CT scan imaging to look at his pancreas and abdomen the patient was amenable to this. Also advised the patient that it may be possible he should be admitted to the hospital for further monitoring given the potential dangers inherent in acute pancreatitis. Later in the patient's stay he stated that he felt like he wanted to smoke and was offered a nicotine patch, which was ordered. Shortly after, the patient advised the charge nurse that he was getting antsy and wanted to go outside and smoke. I spoke with the patient and discussed the fact that we are still waiting on the final results from his CT scan, that his symptoms/labs are concerning for a cute pancreatitis, he was provided with some risk factors regarding potential sequela of acute pancreatitis including , or organ failure and he was discouraged from leaving Against Medical Advice. He stated that ?you guys just don't understand where I'm at, I need to go outside and smoke ? He then pulled his own IV out. He stated that he would be willing to ?come back in after smoking? it was explained to him that that is not typically how this works, it is an emergency department and if he comes back he is going to have to check in again and go through the whole process, get a new IV Started etc. The patient then signed AMA and left. Pt's case was discussed with the attending. 20:48 Orders Ordered: ED Orders 03/09/20 18:13 Amylase Stat Complete Blood Count AUTO DIFF Stat Comprehensive Metabolic Panel Stat Lipase Stat 03/09/20 18:44 Lactate (Lactic Acid) Stat 03/09/20 19:33 CT abdomen pelvis w con Stat 03/09/20 19:40 Urinalysis and Microscopic Stat Discontinued Medications Acetaminophen (Tylenol) 650 mg PO NOW ONE Stop: 03/09/20 18:03 Last Admin: 03/09/20 18:16 Dose: 650 mg Documented by: MEISENB Sodium Chloride (Normal Saline 0.9%) 1,000 mls @ 150 mls/hr IV CONT OSMAR Last Infusion: 03/09/20 20:49 Dose: 0 mls/hr Documented by: Admin: 03/09/20 18:56 Dose: 150 mls/hr Documented by: MEISENB Lidocaine/Sodium Bicarbonate (Buffered Lidocaine 10 Ml Syr) 10 ml INJ NOW ONE Stop: 03/09/20 18:32 Last Admin: 03/09/20 19:10 Dose: Not Given Documented by: MEISENB Nicotine (Nicoderm) 21 mg TOP NOW ONE Stop: 03/09/20 19:58 Last Admin: 03/09/20 20:14 Dose: 21 mg Documented by: MMCFARL Vital Signs Vital signs: Vital Signs - 8 hr 03/09/20 17:00 03/09/20 19:00 Temperature 98.1 F Pulse Rate 90 73 Respiratory Rate 14 18 Blood Pressure 136/80 Blood Pressure [Left Arm] 125/71 Pulse Oximetry 98 99 <Pauly Epperson MD - Last Filed: 03/09/20 23:04> Orders Ordered: ED Orders 03/09/20 18:13 Amylase Stat Complete Blood Count AUTO DIFF Stat Comprehensive Metabolic Panel Stat Lipase Stat 03/09/20 18:44 Lactate (Lactic Acid) Stat 03/09/20 19:33 CT abdomen pelvis w con Stat 03/09/20 19:40 Urinalysis and Microscopic Stat Discontinued Medications Acetaminophen (Tylenol) 650 mg PO NOW ONE Stop: 03/09/20 18:03 Last Admin: 03/09/20 18:16 Dose: 650 mg Documented by: MEISENB Sodium Chloride (Normal Saline 0.9%) 1,000 mls @ 150 mls/hr IV CONT OSMAR Last Infusion: 03/09/20 20:49 Dose: 0 mls/hr Documented by: Admin: 03/09/20 18:56 Dose: 150 mls/hr Documented by: MEISENB Lidocaine/Sodium Bicarbonate (Buffered Lidocaine 10 Ml Syr) 10 ml INJ NOW ONE Stop: 03/09/20 18:32 Last Admin: 03/09/20 19:10 Dose: Not Given Documented by: MEISENB Nicotine (Nicoderm) 21 mg TOP NOW ONE Stop: 03/09/20 19:58 Last Admin: 03/09/20 20:14 Dose: 21 mg Documented by: MMCFARL Vital Signs Vital signs: Vital Signs - 8 hr 03/09/20 17:00 03/09/20 19:00 Temperature 98.1 F Pulse Rate 90 73 Respiratory Rate 14 18 Blood Pressure 136/80 Blood Pressure [Left Arm] 125/71 Pulse Oximetry 98 99 MDM - Headache <Zeinab Holcomb PA-C - Last Filed: 03/09/20 22:15> Differential Diagnosis Differential diagnosis: Likely other (acute pancreatitis, folliculitis of scalp) Medical Records Attestation: I reviewed the patient's medical records. Lab Data Attestation: I reviewed the patient's lab results. Result diagrams: 03/09/20 18:13 03/09/20 18:13 Labs: Lab Results 03/09/20 03/09/20 03/09/20 Range/Units 18:13 18:13 18:13 WBC 9.1 (4.5-11.0) X10^3/uL RBC 4.31 L (4.5-5.9) X10^6/uL Hgb 12.8 L (13.5-17.5) g/dL Hct 37.6 L (41-53) % MCV 87.3 (80-100) fL MCH 29.7 (26-34) PG MCHC 34.0 (30-36) % RDW 13.8 (11.6-14.8) % Plt Count 325 (150-400) X10^3/uL Neut % (Auto) 54.1 (50-75) % Lymph % (Auto) 33.8 (25-40) % [place] % (Auto) 8.6 (3-14) % Eos % (Auto) 2.6 (2-4) % Baso % (Auto) 0.9 (0-2) % Neut # (Auto) 4900 (1347-7090) /uL Lymph # (Auto) 3100 (7519-9114) /uL [place] # (Auto) 800 (0-900) /uL Eos # (Auto) 200 (0-450) /uL Baso # (Auto) 100 (0-100) /uL Sodium 137 (137-145) mmol/L Potassium 4.1 (3.4-5.1) mmol/L Chloride 104 (98-107) mmol/L Carbon Dioxide 25 (22-32) mmol/L BUN 11 (9-20) mg/dL Creatinine 0.98 (0.66-1.25) mg/dL Estimated GFR > 60.0 (>60) mL/min BUN/Creatinine Ratio 11.2 (6-22) Glucose 77 (70-100) mg/dL Lactate (0.7-2.1) mmol/L Calcium 9.5 (8.4-10.2) mg/dL Total Bilirubin 0.2 (0.2-1.3) mg/dL AST 28 (17-59) IU/L ALT 20 (<50) IU/L Alkaline Phosphatase 84 (38-126) U/L Total Protein 7.3 (6.3-8.2) g/dL Albumin 4.3 (3.5-5.0) g/dL Globulin 3.0 (1.7-4.1) g/dL Albumin/Globulin Ratio 1.4 (1.0-2.8) Amylase 168 H (30-110) U/L Lipase 1056 H (23-300) U/L Urine Color Urine Appearance Urine pH (4.5-8.0) Ur Specific [place] (1.000-1.035) Urine Protein (Negative) Urine Glucose (UA) (Negative) g/dL Urine Ketones (NEGATIVE) Urine Occult Blood (Negative) Urine Nitrate (Negative) Urine Bilirubin (NEGATIVE) Urine Urobilinogen (0.2) E.U./dL Ur Leukocyte Esterase (NEGATIVE) Urine RBC (0-5/HPF) Urine WBC (0-5/HPF) Ur Squamous Epith Cells (0-5/HPF) Urine Bacteria (None) Ur Culture Indicated? 03/09/20 03/09/20 Range/Units 18:44 19:40 WBC (4.5-11.0) X10^3/uL RBC (4.5-5.9) X10^6/uL Hgb (13.5-17.5) g/dL Hct (41-53) % MCV (80-100) fL MCH (26-34) PG MCHC (30-36) % RDW (11.6-14.8) % Plt Count (150-400) X10^3/uL Neut % (Auto) (50-75) % Lymph % (Auto) (25-40) % [place] % (Auto) (3-14) % Eos % (Auto) (2-4) % Baso % (Auto) (0-2) % Neut # (Auto) (7229-5903) /uL Lymph # (Auto) (2606-8786) /uL [place] # (Auto) (0-900) /uL Eos # (Auto) (0-450) /uL Baso # (Auto) (0-100) /uL Sodium (137-145) mmol/L Potassium (3.4-5.1) mmol/L Chloride (98-107) mmol/L Carbon Dioxide (22-32) mmol/L BUN (9-20) mg/dL Creatinine (0.66-1.25) mg/dL Estimated GFR (>60) mL/min BUN/Creatinine Ratio (6-22) Glucose (70-100) mg/dL Lactate 0.9 (0.7-2.1) mmol/L Calcium (8.4-10.2) mg/dL Total Bilirubin (0.2-1.3) mg/dL AST (17-59) IU/L ALT (<50) IU/L Alkaline Phosphatase (38-126) U/L Total Protein (6.3-8.2) g/dL Albumin (3.5-5.0) g/dL Globulin (1.7-4.1) g/dL Albumin/Globulin Ratio (1.0-2.8) Amylase (30-110) U/L Lipase (23-300) U/L Urine Color Yellow Urine Appearance Clear Urine pH 7.0 (4.5-8.0) Ur Specific [place] <=1.005 (1.000-1.035) Urine Protein Negative (Negative) Urine Glucose (UA) Negative (Negative) g/dL Urine Ketones Negative (NEGATIVE) Urine Occult Blood Negative (Negative) Urine Nitrate Negative (Negative) Urine Bilirubin Negative (NEGATIVE) Urine Urobilinogen 0.2 (0.2) E.U./dL Ur Leukocyte Esterase Negative (NEGATIVE) Urine RBC None seen (0-5/HPF) Urine WBC None seen (0-5/HPF) Ur Squamous Epith Cells 0-1 /hpf (0-5/HPF) Urine Bacteria None seen (None) Ur Culture Indicated? Cult not indicated Imaging Data CT scan - abdomen/pelvis: Radiologist's Impression: [address] [place] [address] CT Scan Report Signed Patient: Hitesh Moreno JR RMR#: [id number] : 1990Acct:[id number] Age/Sex: MDate of Service: 03/09/20 Loc: ED Accession Number: [id number] Procedure: CT abdomen pelvis w con Ordering Provider: Zeinab Holcomb P.A-C PROCEDURE: CT ABDOMEN PELVIS W CON INDICATIONS: suspect acute pancreatitis TECHNIQUE: After the administration of intravenous contrast, 5 mm thick sections acquired from the diaphragm to the symphysis. 5 mm coronal and sagittal reformats were acquired. For radiation dose reduction, the following was used: automated exposure control, adjustment of mA and/or kV according to patient size. COMPARISON: [facility], CT, CHEST/ABD/PELVIS W/CON ([facility]), 05/10/2011, 8:22. FINDINGS: Image quality: Excellent. ABDOMEN: Lung bases: Lung bases are clear. Heart size is normal. Solid organs: Evaluation of the liver demonstrates no focal hepatic lesions. The gallbladder appears within normal limits without calcified gallstones. Biliary system is non-dilated. Pancreas demonstrates no discrete mass lesion. There is fullness of the pancreatic parenchyma. No peripancreatic fat stranding or fluid collections. No pancreatic duct dilatation. The spleen is normal in size. No adrenal nodules. Kidneys demonstrate no hydronephrosis. Peritoneum and bowel: There is slight segmental wall thickening and enhancement of the terminal ileum. Bowel loops otherwise demonstrate normal wall thickness and caliber. No free fluid or air. Nodes and vessels: No retroperitoneal or mesenteric adenopathy by size criteria. Aorta and inferior vena cava are normal in size. Miscellaneous: No ventral hernias. PELVIS: Genitourinary: Bladder wall thickness is normal. Miscellaneous: No inguinal hernias or adenopathy. Bones: No suspicious bony lesions. No vertebral body compression fractures. IMPRESSION: 1. No peripancreatic fat stranding or fluid collections identified. However, there is soft tissue fullness of the pancreas with slight effacement of the lobules. The findings are nonspecific but may reflect autoimmune pancreatitis. Recommend correlation clinically. 2. No pancreatic duct dilatation or discrete pancreatic mass identified. 3. Slight segmental wall thickening and enhancement of the terminal ileum. Findings are of indeterminate clinical significance and may reflect a mild enteritis. Dictated by: Navdeep Loyola M.D. on 03/09/2020 at 20:46 Approved by: Navdeep Loyola M.D. on 03/09/2020 at 20:52 [facility] Narrative Medical decision making narrative: This is a 29-year-old with history notable for multiple recent emergency department visits including 1 for GI bleeding and possible peptic ulcer disease. Who presented to the emergency department today with complaints of continued intermittent abdominal pain as well as pain on his scalp at the back of his head with some associated swelling and itchiness. Labs were concerning for acute pancreatitis, with elevated amylase and lipase greater than 3 times the upper limit of normal. The patient denied any medication use, or alcohol use that might induce pancreatitis with the exception of recent pantoprazole however he had not taken this for the last 2 weeks. He was still taking sucralfate upon presentation to the ED today. CT scan showed soft tissue fullness of the pancreas and was nonspecific but suggested that it may reflect autoimmune pancreatitis. This is concerning as the patient had stated that he has really just been feeling unwell recently--for the last few weeks to months-- and he ?knows something is not right? he also has some nontender posterior auricular lymphadenopathy. Unfortunately the patient elected to leave Against Medical Advice (see ED course) prior to receiving a final results of the CT scan and likely recommendation for admission. This had been discussed with him earlier in his stay and he was open to this possibility however he became uncomfortable and decided to leave the emergency department and removed his IV. Had also planned to treat him for his folliculitis with topical mupirocin. He does not have a regular PCP, and we discussed the fact that there are options for him to get set up with [address] [place] [address]. His most recent emergency department visit was actually a ?follow-up PCP visit? because he had not actually established care with a PCP and wanted to follow-up from his previous emergency department visit. <Pauly Epperson MD - Last Filed: 03/09/20 23:04> Lab Data Labs: Lab Results 03/09/20 03/09/20 03/09/20 Range/Units 18:13 18:13 18:13 WBC 9.1 (4.5-11.0) X10^3/uL RBC 4.31 L (4.5-5.9) X10^6/uL Hgb 12.8 L (13.5-17.5) g/dL Hct 37.6 L (41-53) % MCV 87.3 (80-100) fL MCH 29.7 (26-34) PG MCHC 34.0 (30-36) % RDW 13.8 (11.6-14.8) % Plt Count 325 (150-400) X10^3/uL Neut % (Auto) 54.1 (50-75) % Lymph % (Auto) 33.8 (25-40) % [place] % (Auto) 8.6 (3-14) % Eos % (Auto) 2.6 (2-4) % Baso % (Auto) 0.9 (0-2) % Neut # (Auto) 4900 (8503-4745) /uL Lymph # (Auto) 3100 (7887-0000) /uL [place] # (Auto) 800 (0-900) /uL Eos # (Auto) 200 (0-450) /uL Baso # (Auto) 100 (0-100) /uL Sodium 137 (137-145) mmol/L Potassium 4.1 (3.4-5.1) mmol/L Chloride 104 (98-107) mmol/L Carbon Dioxide 25 (22-32) mmol/L BUN 11 (9-20) mg/dL Creatinine 0.98 (0.66-1.25) mg/dL Estimated GFR > 60.0 (>60) mL/min BUN/Creatinine Ratio 11.2 (6-22) Glucose 77 (70-100) mg/dL Lactate (0.7-2.1) mmol/L Calcium 9.5 (8.4-10.2) mg/dL Total Bilirubin 0.2 (0.2-1.3) mg/dL AST 28 (17-59) IU/L ALT 20 (<50) IU/L Alkaline Phosphatase 84 (38-126) U/L Total Protein 7.3 (6.3-8.2) g/dL Albumin 4.3 (3.5-5.0) g/dL Globulin 3.0 (1.7-4.1) g/dL Albumin/Globulin Ratio 1.4 (1.0-2.8) Amylase 168 H (30-110) U/L Lipase 1056 H (23-300) U/L Urine Color Urine Appearance Urine pH (4.5-8.0) Ur Specific [place] (1.000-1.035) Urine Protein (Negative) Urine Glucose (UA) (Negative) g/dL Urine Ketones (NEGATIVE) Urine Occult Blood (Negative) Urine Nitrate (Negative) Urine Bilirubin (NEGATIVE) Urine Urobilinogen (0.2) E.U./dL Ur Leukocyte Esterase (NEGATIVE) Urine RBC (0-5/HPF) Urine WBC (0-5/HPF) Ur Squamous Epith Cells (0-5/HPF) Urine Bacteria (None) Ur Culture Indicated? 03/09/20 03/09/20 Range/Units 18:44 19:40 WBC (4.5-11.0) X10^3/uL RBC (4.5-5.9) X10^6/uL Hgb (13.5-17.5) g/dL Hct (41-53) % MCV (80-100) fL MCH (26-34) PG MCHC (30-36) % RDW (11.6-14.8) % Plt Count (150-400) X10^3/uL Neut % (Auto) (50-75) % Lymph % (Auto) (25-40) % [place] % (Auto) (3-14) % Eos % (Auto) (2-4) % Baso % (Auto) (0-2) % Neut # (Auto) (1936-4949) /uL Lymph # (Auto) (5747-3281) /uL [place] # (Auto) (0-900) /uL Eos # (Auto) (0-450) /uL Baso # (Auto) (0-100) /uL Sodium (137-145) mmol/L Potassium (3.4-5.1) mmol/L Chloride (98-107) mmol/L Carbon Dioxide (22-32) mmol/L BUN (9-20) mg/dL Creatinine (0.66-1.25) mg/dL Estimated GFR (>60) mL/min BUN/Creatinine Ratio (6-22) Glucose (70-100) mg/dL Lactate 0.9 (0.7-2.1) mmol/L Calcium (8.4-10.2) mg/dL Total Bilirubin (0.2-1.3) mg/dL AST (17-59) IU/L ALT (<50) IU/L Alkaline Phosphatase (38-126) U/L Total Protein (6.3-8.2) g/dL Albumin (3.5-5.0) g/dL Globulin (1.7-4.1) g/dL Albumin/Globulin Ratio (1.0-2.8) Amylase (30-110) U/L Lipase (23-300) U/L Urine Color Yellow Urine Appearance Clear Urine pH 7.0 (4.5-8.0) Ur Specific [place] <=1.005 (1.000-1.035) Urine Protein Negative (Negative) Urine Glucose (UA) Negative (Negative) g/dL Urine Ketones Negative (NEGATIVE) Urine Occult Blood Negative (Negative) Urine Nitrate Negative (Negative) Urine Bilirubin Negative (NEGATIVE) Urine Urobilinogen 0.2 (0.2) E.U./dL Ur Leukocyte Esterase Negative (NEGATIVE) Urine RBC None seen (0-5/HPF) Urine WBC None seen (0-5/HPF) Ur Squamous Epith Cells 0-1 /hpf (0-5/HPF) Urine Bacteria None seen (None) Ur Culture Indicated? Cult not indicated Discharge Plan Departure Patient Disposition: Left Against Medical Advice Clinical Impression: Left against medical advice, Folliculitis Acute pancreatitis Qualifiers: Pancreatitis type: unspecified pancreatitis type Acute pancreatitis complication: unspecified Qualified Code(s): K85.90 - Acute pancreatitis without necrosis or infection, unspecified Abdominal pain Qualifiers: Abdominal location: left upper quadrant Qualified Code(s): R10.12 - Left upper quadrant pain Discharge Date/Time: 03/09/20 20:50 Prescriptions: No Action pantoprazole [Protonix] 40 mg tablet,delayed release (DR/EC) 40 mg PO BID Qty: 30 RF: 0 Stand Alone Forms: Against Medical Advice <Pauly Epperson MD - Last Filed: 03/09/20 23:04> Cosign ED Attending Cosignature Attestation: I was immediately available in the department for consultation throughout this patient's visit. I agree with documentation as above. Pauly Epperson MD
[2020-03-09] MEDS: ACETAMINOPHEN 325 MG TABLET 650 MG PO (18:16)
[2020-03-09 18:20] LABS: Add Manual Diff / Slide Review NO; Basophils Absolute Auto 100 /uL (0-100); Basophils Percent Auto 0.9 % (0-2); Eosinophils Absolute Auto 200 /uL (0-450); Eosinophils Percent Auto 2.6 % (2-4); Hematocrit 37.6 % (41-53); Hemoglobin 12.8 g/dL (13.5-17.5); Lymphocytes Absolute Auto 3100 /uL (1100-4500); Lymphocytes Percent Auto 33.8 % (25-40); Mean Corpuscular Hemoglobin 29.7 PG (26-34); Mean Corpuscular Volume 87.3 fL (80-100); Monocytes Absolute Auto 800 /uL (0-900); Monocytes Percent Auto 8.6 % (3-14); Neutrophils Absolute Auto 4900 /uL (1500-7000); Neutrophils Percent Auto 54.1 % (50-75); Platelet Count 325 X10^3/uL (150-400); Red Blood Cell Count 4.31 X10^6/uL (4.5-5.9); Red Cell Distribution Width 13.8 % (11.6-14.8); White Blood Cell Count 9.1 X10^3/uL (4.5-11.0)
[2020-03-09 18:35] LABS: Alanine Aminotransferase 20 IU/L (<50); Albumin 4.3 g/dL (3.5-5.0); Albumin Globulin Ratio 1.4 (1.0-2.8); Alkaline Phosphatase 84 U/L (38-126); Aspartate Aminotransferase 28 IU/L (17-59); BUN Creatinine Ratio 11.2 (6-22); Bilirubin Total 0.2 mg/dL (0.2-1.3); Blood Urea Nitrogen 11 mg/dL (9-20); Calcium 9.5 mg/dL (8.4-10.2); Carbon Dioxide 25 mmol/L (22-32); Chloride 104 mmol/L (98-107); Estimated Glomerular Filt Rate > 60.0 mL/min (>60); Glucose 77 mg/dL (70-100); HEMOLYSIS < 15 (0-50); Lipase 1056 U/L (23-300); Potassium 4.1 mmol/L (3.4-5.1); Sodium 137 mmol/L (137-145); Total Protein 7.3 g/dL (6.3-8.2)
[2020-03-09] MEDS: SODIUM CHLORIDE 0.9% 1,000 ML 150 ML IV (18:56)
[2020-03-09 19:00] VITALS: BP 125/71; PULSE 73; RESP 18; O2SAT 99
[2020-03-09 19:04] LABS: Amylase 168 U/L (30-110)
[2020-03-09 19:32] LABS: Lactate (Lactic Acid) 0.9 mmol/L (0.7-2.1)
--- NOTE | 2020-03-09 19:33 | DI.CT.S_ITS ---
PROCEDURE: CT ABDOMEN PELVIS W CON INDICATIONS: suspect acute pancreatitis TECHNIQUE: After the administration of intravenous contrast, 5 mm thick sections acquired from the diaphragm to the symphysis. 5 mm coronal and sagittal reformats were acquired. For radiation dose reduction, the following was used: automated exposure control, adjustment of mA and/or kV according to patient size. COMPARISON: [facility], CT, CHEST/ABD/PELVIS W/CON (PNL), 05/10/2011, 8:22. FINDINGS: Image quality: Excellent. ABDOMEN: Lung bases: Lung bases are clear. Heart size is normal. Solid organs: Evaluation of the liver demonstrates no focal hepatic lesions. The gallbladder appears within normal limits without calcified gallstones. Biliary system is non-dilated. Pancreas demonstrates no discrete mass lesion. There is fullness of the pancreatic parenchyma. No peripancreatic fat stranding or fluid collections. No pancreatic duct dilatation. The spleen is normal in size. No adrenal nodules. Kidneys demonstrate no hydronephrosis. Peritoneum and bowel: There is slight segmental wall thickening and enhancement of the terminal ileum. Bowel loops otherwise demonstrate normal wall thickness and caliber. No free fluid or air. Nodes and vessels: No retroperitoneal or mesenteric adenopathy by size criteria. Aorta and inferior vena cava are normal in size. Miscellaneous: No ventral hernias. PELVIS: Genitourinary: Bladder wall thickness is normal. Miscellaneous: No inguinal hernias or adenopathy. Bones: No suspicious bony lesions. No vertebral body compression fractures. IMPRESSION: 1. No peripancreatic fat stranding or fluid collections identified. However, there is soft tissue fullness of the pancreas with slight effacement of the lobules. The findings are nonspecific but may reflect autoimmune pancreatitis. Recommend correlation clinically. 2. No pancreatic duct dilatation or discrete pancreatic mass identified. 3. Slight segmental wall thickening and enhancement of the terminal ileum. Findings are of indeterminate clinical significance and may reflect a mild enteritis. Dictated by: Navdeep Loyola M.D. on 03/09/2020 at 20:46 Approved by: Navdeep Loyola M.D. on 03/09/2020 at 20:52
[2020-03-09 19:44] LABS: Bacteria Urine None Seen; RBC Urine None Seen (0-5/HPF); WBC Urine None Seen (0-5/HPF)
[2020-03-09 19:45] LABS: Appearance Urine UA CLEAR; Bilirubin Urine UA NEGATIVE (NEGATIVE); Color Urine UA YELLOW; Glucose Urine UA NEGATIVE (Negative); Ketones Urine UA NEGATIVE (NEGATIVE); Leukocyte Esterase Urine UA NEGATIVE (NEGATIVE); Nitrite Urine UA NEGATIVE (Negative); Occult Blood Urine UA NEGATIVE (Negative); Protein Urine UA NEGATIVE (Negative); Specific Gravity Urine UA <=1.005 (1.000-1.035); Urobilinogen Urine UA 0.2 E.U./dL (0.2)
[2020-03-09 19:52] LABS: Culture Indicated Urine Cult Not Indicated; Squamous Epithelial Cell Urine 0-1 /HPF (0-5/HPF)
[2020-03-09] MEDS: NICOTINE 21 MG PATCH TOP (20:14)
--- NOTE | 2020-03-09 21:42 | PC.NURSE ---
PT Dad called and wanted an update on pt who left hospital AMA, Dad spoke with admission discharge rn and pt son sitting next to dad gave consent for dad to be updated. Pt dad updated on plan of care prior to pt leaving AMA and encouraged to have pt followup to return to ER or receive additional medical care. Dad aware of recommendation for pt to be seen for additional medical care and thanked staff for the update.
== END 2020-03-09 20:50 | disposition left against medical advice (07) ==
PROVIDERS: Emergency Provider Student in an Organized Health Care Education/Training Program
DX: L73.9 Follicular disorder, unspecified (principal); K85.90 Acute pancreatitis without necrosis or infection, unspecified; R10.12 Left upper quadrant pain
CPT/HCPCS: 36415; 74177; 80053; 81001; 82150; 83605; 83690; 85025; 96360; 96361; 99284; Q9967

== ENCOUNTER 2020-03-10 16:45 | Emergency (ER) | payer OTHER, MEDICAID, SELFPAY ==
[2020-03-10 16:53] VITALS: BP 114/62; PULSE 86; RESP 14; TEMP 36.7; O2SAT 98; BMI 23.7
--- NOTE | 2020-03-10 17:26 | PC.NURSE ---
pt states they wanted to keep me, I wanted to smoke so i left pt denies symptoms now, dad states he is back cause his dad is here.
--- NOTE | 2020-03-10 18:25 | PC.NURSE ---
attempted to pt in eval room. pt was eating sandwhich, states he does not want to be seen, he is not having pain.
== END 2020-03-10 18:26 | disposition left against medical advice (07) ==
PROVIDERS: Emergency Provider Emergency Medicine
CPT/HCPCS: 99281

== ENCOUNTER 2020-04-04 22:26 | Emergency (ER) | payer OTHER, MEDICAID, SELFPAY ==
[2020-04-04 22:31] VITALS: BP 134/81; PULSE 69; RESP 14; TEMP 37; O2SAT 99
[2020-04-04 23:51] LABS: Add Manual Diff / Slide Review NO; Basophils Absolute Auto 100 /uL (0-100); Basophils Percent Auto 0.6 % (0-2); Eosinophils Absolute Auto 200 /uL (0-450); Eosinophils Percent Auto 2.2 % (2-4); Hematocrit 36.6 % (41-53); Hemoglobin 12.1 g/dL (13.5-17.5); Lymphocytes Absolute Auto 2900 /uL (1100-4500); Lymphocytes Percent Auto 33.8 % (25-40); Mean Corpuscular HGB Conc 33.2 % (30-36); Mean Corpuscular Hemoglobin 28.2 PG (26-34); Monocytes Absolute Auto 800 /uL (0-900); Monocytes Percent Auto 9.5 % (3-14); Neutrophils Absolute Auto 4600 /uL (1500-7000); Neutrophils Percent Auto 53.9 % (50-75); Platelet Count 298 X10^3/uL (150-400); Red Cell Distribution Width 14.6 % (11.6-14.8); White Blood Cell Count 8.5 X10^3/uL (4.5-11.0)
[2020-04-05 00:05] LABS: Alanine Aminotransferase 18 IU/L (<50); Albumin 3.8 g/dL (3.5-5.0); Albumin Globulin Ratio 1.4 (1.0-2.8); Alkaline Phosphatase 77 U/L (38-126); Aspartate Aminotransferase 28 IU/L (17-59); BUN Creatinine Ratio 12.7 (6-22); Bilirubin Total 0.1 mg/dL (0.2-1.3); Blood Urea Nitrogen 10 mg/dL (9-20); Calcium 9.1 mg/dL (8.4-10.2); Carbon Dioxide 26 mmol/L (22-32); Chloride 106 mmol/L (98-107); Estimated Glomerular Filt Rate > 60.0 mL/min (>60); Globulin 2.7 g/dL (1.7-4.1); Glucose 84 mg/dL (70-100); HEMOLYSIS < 15 (0-50); Lipase 97 U/L (23-300); Potassium 3.9 mmol/L (3.4-5.1); Sodium 136 mmol/L (137-145); Total Protein 6.5 g/dL (6.3-8.2)
--- NOTE | 2020-04-05 00:17 | ED_ITS ---
HPI - Abdominal Pain General Chief Complaint: Abdominal Pain Stated Complaint: stomach upset,nausea Time Seen by Provider: 04/05/20 00:17 Source: patient Mode of arrival: Ambulatory Limitations: no limitations History of Present Illness HPI narrative: Patient denied my input as entered room, he wants to leave withou t further interaction. Related Data Previous Rx's Medication Instructions Recorded pantoprazole [Protonix] 40 mg PO BID #30 tab 02/06/20 Allergies Allergy/AdvReac Type Severity Reaction Status Date / Time No Known Drug Allergies Allergy Verified 03/10/20 16:53 Patient History Social History Smoking Status: Current every day smoker Smoking Status: Current every day smoker tobacco type: cigars Substance Use Type: does not use Exam Initial Vital Signs Initial Vital Signs: Vital Signs Temperature 98.6 F 04/04/20 22:31 Pulse Rate 69 04/04/20 22:31 Respiratory Rate 14 04/04/20 22:31 Blood Pressure 134/81 04/04/20 22:31 Pulse Oximetry 99 04/04/20 22:31 Course Orders Ordered: ED Orders 04/04/20 23:40 Complete Blood Count AUTO DIFF Stat Comprehensive Metabolic Panel Stat Lipase Stat Sodium Chloride (Normal Saline 0.9%) 1,000 mls @ 150 mls/hr IV CONT OSMAR Discontinued Medications Ondansetron HCl (Zofran) 4 mg IV NOW ONE Stop: 04/04/20 22:34 Vital Signs Vital signs: Vital Signs - 8 hr 04/04/20 22:31 Temperature 98.6 F Pulse Rate 69 Respiratory Rate 14 Blood Pressure 134/81 Pulse Oximetry 99 MDM - Abdominal Pain Lab Data Result diagrams: 04/04/20 23:40 04/04/20 23:40 Labs: Lab Results 04/04/20 04/04/20 Range/Units 23:40 23:40 WBC 8.5 (4.5-11.0) X10^3/uL RBC 4.30 L (4.5-5.9) X10^6/uL Hgb 12.1 L (13.5-17.5) g/dL Hct 36.6 L (41-53) % MCV 85.0 (80-100) fL MCH 28.2 (26-34) PG MCHC 33.2 (30-36) % RDW 14.6 (11.6-14.8) % Plt Count 298 (150-400) X10^3/uL Neut % (Auto) 53.9 (50-75) % Lymph % (Auto) 33.8 (25-40) % [place] % (Auto) 9.5 (3-14) % Eos % (Auto) 2.2 (2-4) % Baso % (Auto) 0.6 (0-2) % Neut # (Auto) 4600 (5201-5012) /uL Lymph # (Auto) 2900 (4309-8698) /uL [place] # (Auto) 800 (0-900) /uL Eos # (Auto) 200 (0-450) /uL Baso # (Auto) 100 (0-100) /uL Sodium 136 L (137-145) mmol/L Potassium 3.9 (3.4-5.1) mmol/L Chloride 106 (98-107) mmol/L Carbon Dioxide 26 (22-32) mmol/L BUN 10 (9-20) mg/dL Creatinine 0.79 (0.66-1.25) mg/dL Estimated GFR > 60.0 (>60) mL/min BUN/Creatinine Ratio 12.7 (6-22) Glucose 84 (70-100) mg/dL Calcium 9.1 (8.4-10.2) mg/dL Total Bilirubin 0.1 L (0.2-1.3) mg/dL AST 28 (17-59) IU/L ALT 18 (<50) IU/L Alkaline Phosphatase 77 (38-126) U/L Total Protein 6.5 (6.3-8.2) g/dL Albumin 3.8 (3.5-5.0) g/dL Globulin 2.7 (1.7-4.1) g/dL Albumin/Globulin Ratio 1.4 (1.0-2.8) Lipase 97 (23-300) U/L Discharge Plan Departure Patient Disposition: Left Against Medical Advice Clinical Impression: Patient left without being seen Prescriptions: No Action pantoprazole [Protonix] 40 mg tablet,delayed release (DR/EC) 40 mg PO BID Qty: 30 RF: 0 Stand Alone Forms: Against Medical Advice
== END 2020-04-05 00:23 | disposition left against medical advice (07) ==
PROVIDERS: Emergency Provider Emergency Medicine
DX: R10.9 Unspecified abdominal pain (principal); R11.2 Nausea with vomiting, unspecified
CPT/HCPCS: 36415; 80053; 83690; 85025; 99284

== ENCOUNTER 2021-02-22 16:20 | Emergency (ER) | payer OTHER, MEDICAID, SELFPAY ==
[2021-02-22 16:32] VITALS: BP 107/72; PULSE 89; RESP 16; TEMP 37.2; O2SAT 98; BMI 23.7
--- NOTE | 2021-02-22 18:55 | ED_ITS ---
HPI - Skin/Abscess/Foreign Bdy General Chief complaint: Skin/Abscess/Foreign Body Stated complaint: having issues (?skin) Time Seen by Provider: 02/22/21 18:28 Source: patient Mode of arrival: Ambulatory History of Present Illness HPI narrative: Patient here for evaluation of free current left gluteal abscess/perirectal. Has had it drained 3 times in the past. Does not recall most recently. No new issues. He wanted evaluation for removal of a hard nodule that has remained there. No fever chills. No rectal pain. No drainage from the skin at the gluteal site. Related Data Previous Rx's Medication Instructions Recorded pantoprazole 40 mg tablet,delayed 40 mg PO BID #60 tab 06/07/20 release doxycycline monohydrate 100 mg PO BID #14 cap 02/22/21 Allergies Allergy/AdvReac Type Severity Reaction Status Date / Time No Known Drug Allergies Allergy Verified 06/06/20 15:59 Review of Systems Review of Systems Narrative: GENERAL: Denies chills, fatigue, malaise, fever, sweats. HEENT: Denies sinus pain, ear pain, sore throat RESPIRATORY: Denies dyspnea, cough CARDIOVASCULAR: Denies chest pain, palpitations GASTROINTESTINAL: Denies nausea, vomiting, abdominal pain : Denies dysuria, frequency, hematuria MUSCULOSKELETAL: denies muscle or bony pain SKIN: Denies rash, skin lesions NEUROLOGIC: Denies weakness, numbness ROS Unobtainable: All systems reviewed & are unremarkable except as noted in HPI and below Patient History Social History Smoking Status: Current every day smoker Smoking Status: Current every day smoker tobacco type: cigars Substance Use Type: does not use Exam Narrative Exam Narrative: GENERAL: in no distress, not toxic not dyspneic HEAD: Normocephalic. EYES: Pupils equal round No scleral icterus. No injection no discharge. CARDIOVASCULAR: Regular rate and rhythm without murmurs RESPIRATORY: Clear to auscultation. Breath sounds equal bilaterally. No wheezes, rales, or rhonchi. GASTROINTESTINAL: Abdomen soft, non-tender BACK: No flank tenderness. NEURO: AOx4. SKIN: Warm and dry examination perirectal area. There is small nontender nodul e at the left medial gluteal fold. It is not at the anus. Nontender. No fluctuance. Measures approximately 1 cm in diameter and is deep. There is no overlying fluctuance or erythema or induration. Nodule is nontender. PSYCH: Not anxious, is cooperative Initial Vital Signs Initial Vital Signs: Vital Signs Temperature 99 F 02/22/21 16:32 Pulse Rate 89 02/22/21 16:32 Respiratory Rate 16 02/22/21 16:32 Blood Pressure 107/72 02/22/21 16:32 Pulse Oximetry 98 02/22/21 16:32 Course Course Course Narrative: Patient eloped after I saw patient Orders Ordered: Discontinued Medications Doxycycline Hyclate (Doxycycline Hyclate 100 Mg Tablet) 100 mg PO NOW ONE Stop: 02/22/21 18:57 Reevaluation(s) Reevaluation #1: Patient eloped without paperwork or informing staff. Did not take prescribed medication here Time: 19:04 Vital Signs Vital signs: Vital Signs - 8 hr 02/22/21 16:32 Temperature 99 F Pulse Rate 89 Respiratory Rate 16 Blood Pressure 107/72 Pulse Oximetry 98 MDM - Skin/Abscess/Foreign Bdy Differential Diagnosis Differential diagnosis: Likely abscess of skin or subcutaneous tissue and other (Perirectal abscess/pilonidal cyst) MDM Narrative Medical decision making narrative: Appropriate for discharge home. Ongoing for at least 3-5 months. 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 No laboratory studies indicated this time. No imaging. This is chronic and ongoing for many months. Appropriate for outpatient surgical referral. This is chronic. Informed patient these cases are evaluated outpatient basis and if indicated outpatient surgery. No indication for excision today. No fever chills no fluctuance. No drainage. I offered antibiotics to help the possible inflammation early stages. As well as reduce the size of the nodule Discharge Plan Departure Patient Disposition: Home Clinical Impression: Abscess of skin or subcutaneous tissue Qualifiers: Site of cutaneous abscess: buttock Qualified Code(s): L02.31 - Cutaneous abscess of buttock Instructions: DI for Skin Abscess Activity Restrictions/Additional Instructions: Call provided surgical office tomorrow morning for office evaluation of the nodule on your buttock. Prescriptions have been sent to your pharmacy in [facility]. Return if worse or if any questions or concerns. Prescriptions: New doxycycline monohydrate 100 mg capsule 100 mg PO BID Qty: 14 RF: 0 No Action pantoprazole [Protonix] 40 mg tablet,delayed release (DR/EC) 40 mg PO BID Qty: 60 RF: 0 Referrals: Everton Castro ARNP [Primary Care Provider] - Amina Celaya MD [Physician] -
--- NOTE | 2021-02-22 18:56 | PC.NURSE ---
Patient up in hallway, asked how I could help him he stated he was waiting for his medications and paperwork. Explained to patient that there was no paperwork or medications ready for him at this time. Asked patient to wait in the room no I am going to wait in the waiting room explained we can't finish his evaluation from the lobby. Asked patient again to wait in room No i am going to wait in the waiting room, I don't know why I always have a problem with you patient rolled his eyes, shook his head and walked out of department
== END 2021-02-22 19:00 | disposition home or self-care (01) ==
PROVIDERS: Emergency Provider Emergency Medicine; PCP Registered Nurse Diabetes Educator
DX: L02.31 Cutaneous abscess of buttock (principal)
CPT/HCPCS: 99281